=== PATIENT | female | born 1950 | race Caucasian/White ===

== ENCOUNTER → 2024-06-14 15:31 | Outpatient (REF) | payer BC, SELFPAY | LOC: RAD 15:31 | PROVIDERS: ATTENDING PHYSICIAN Student in an Organized Health Care Education/Training Program; FAMILY PHYSICIAN Internal Medicine | DX: I73.9 Peripheral vascular disease, unspecified (principal) | CPT/HCPCS: 93922; 93925 ==

== ENCOUNTER → 2024-08-21 16:08 | Outpatient (REF) | payer BC, SELFPAY ==
[2024-08-21 16:47] LABS: % Basophils 0.7 % (0-2); % Eosinophils 7.5 % (0-6); % Immature Granulocytes 0.4 % (0-0.5); % Lymphocytes 9.5 % (20.5-51.1); % Neutrophils 68.9 % (42.2-75.2); Absolute Basophils 0.1 10^3/uL (0-0.2); Absolute Eosinophils 0.6 10^3/uL (0-0.7); Absolute Lymphocytes 0.8 10^3/uL (1.2-3.4); Absolute Monocytes 1.1 10^3/uL (0.1-0.6); Absolute Neutrophils 5.8 10^3/uL (1.4-6.5); Hematocrit 35.9 % (37.0-47.0); Hemoglobin 11.2 g/dL (12.0-16.0); Mean Corp Hgb Conc. 31.2 g/dL (33.0-37.0); Mean Corpuscular Hgb 31.3 pg (27.0-31.0); Mean Corpuscular Volume 100.3 fL (81.0-99.0); Mean Platelet Volume 10.4 fL (7.4-10.4); Nucleated Red Blood Cells % 0 %; Platelet Count 288 10^3/uL (130-400); Red Blood Cell Count 3.58 10^6/uL (4.20-5.40); Red Cell Dist. Width 14.1 % (11.5-14.5); White Blood Cell Count 8.5 10^3/uL (4.8-10.8)
[2024-08-21 17:00] LABS: Blood Urea Nitrogen 16 mg/dl (7-17); Calcium 8.9 mg/dl (8.4-10.2); Carbon Dioxide 24 mmol/L (22-30); Chloride 97 mmol/L (98-107); Glucose 96 mg/dl (70-99); Potassium 4.3 mmol/L (3.5-5.1); Sodium 135 mmol/L (135-145); eGFR 48.39
== END ==
LOC: REG 16:08
PROVIDERS: ATTENDING PHYSICIAN Internal Medicine
DX: R00.2 Palpitations (principal); R06.02 Shortness of breath; R35.0 Frequency of micturition
CPT/HCPCS: 36415; 71046; 80048; 85025

== ENCOUNTER → 2024-09-27 14:16 | Outpatient (REF) | payer BC, SELFPAY | LOC: HWRAD 14:16 | PROVIDERS: ATTENDING PHYSICIAN Internal Medicine | DX: R91.1 Solitary pulmonary nodule (principal) | CPT/HCPCS: 71250 ==

== ENCOUNTER 2024-09-29 10:41 | Inpatient (IN) | payer BC, MEDICARE, SELFPAY ==
[2024-09-29] VITALS (82 sets, daily range): BP systolic 56–166; BP diastolic 37–125; BMI 23.6; BMI 23.4
[2024-09-29] MEDS: NSS 500 IV (02:36)
[2024-09-29 02:41] LABS: Hematocrit 35.6 % (37.0-47.0); Hemoglobin 11.2 g/dL (12.0-16.0); Mean Corp Hgb Conc. 31.5 g/dL (33.0-37.0); Mean Corpuscular Hgb 31.5 pg (27.0-31.0); Mean Corpuscular Volume 100.3 fL (81.0-99.0); Mean Platelet Volume 10.5 fL (7.4-10.4); Platelet Count 307 10^3/uL (130-400); Red Blood Cell Count 3.55 10^6/uL (4.20-5.40); Red Cell Dist. Width 15.9 % (11.5-14.5); White Blood Cell Count 12.2 10^3/uL (4.8-10.8)
[2024-09-29 02:56] LABS: ALT (SGPT) 18 U/L (0-35); AST (SGOT) 46 U/L (14-36); Albumin 3.4 g/dl (3.5-5.0); Alkaline Phosphatase 305 U/L (38-126); Blood Urea Nitrogen 30 mg/dl (7-17); Calcium 9.3 mg/dl (8.4-10.2); Carbon Dioxide 17 mmol/L (22-30); Chloride 102 mmol/L (98-107); Estimated Creatinine Clearance 20 ml/min; Glucose 89 mg/dl (70-99); Magnesium 1.5 mg/dl (1.6-2.3); Potassium 4.3 mmol/L (3.5-5.1); Sodium 141 mmol/L (135-145); Total Bilirubin 0.8 mg/dl (0.2-1.3); Total Protein 6.5 g/dl (6.3-8.2); eGFR 22.03
[2024-09-29 03:09] LABS: Venous Blood Gas B.E. -10.9 mmol/L (-4 to +4); Venous Blood Gas HCO3 17.2 mmol/L (22-27); Venous Blood Gas O2 Sat % 99.6 %; Venous Blood Gas pCO2 46 mmHg (35-48); Venous Blood Gas pO2 166 mmHg (30-50)
[2024-09-29 03:12] LABS: Venous Blood Gas O2 Therapy 90%
[2024-09-29 03:13] LABS: Venous Blood Gas pH 7.18 (7.32-7.43)
[2024-09-29 03:13] LABS: NT-proBNP > 27000 pg/ml; Troponin I 0.146 ng/ml
--- NOTE | 2024-09-29 04:14 | ED.GENMED ---
History of Present Illness
<Arnoldo Mcgee MD - Last Filed: 09/29/24 15:27>
General
Chief Complaint: Fall
Source: patient
Exam Limitations: none
Time Seen by Provider: 09/29/24 01:55
Nursing documentation reviewed up to this point in time: agreed with
History of Present Illness
History of Present Illness:
Patient with history of lung cancer and COPD, presents to ED after unwitnessed fall in the kitchen, prior to arrival. Patient denies loss of consciousness. Patient states that she felt weak and fell backwards hitting the back of her head against
the floor. Patient has had decreased appetite recently. Per paramedics, patient also was found to be hypoxic at home and placed on nonrebreather, prior to transfer. Upon arrival, patient is complaining of posterior headache and neck pain from the
fall. Denies chest pain. Denies shortness of breath. Denies dizziness. Denies blurred vision. Denies loss of sensation or weakness. Denies recent change in medications or diet. Denies nausea or vomiting. Patient states that due to weakness,
she has been encouraged to use walker at home.
Past History
<Arnoldo Mcgee MD - Last Filed: 09/29/24 15:27>
Past History
ED Past Medical History: Cancer (Non-small cell lung cancer), HTN, Hypercholesterolemia and Psychiatric (Anxiety)
ED Past Surgical History: , Orthopedic and Other
Social History
Tobacco: Former smoker
Alcohol: Occasional
Personal:
Living: with family
Employment: Retired
Family History
Family History: Other (Noncontributory)
Review of Systems
<Arnoldo Mcgee MD - Last Filed: 09/29/24 15:27>
Review of Systems
Allergies reviewed?: Yes
All Other Systems: ROS reviewed and negative except as documented in HPI and ROS
Constitutional: Reports no symptoms; Denies fever
EENT: Reports no symptoms
Respiratory: Reports cough
Cardiac: Reports no symptoms
ABD/GI: Reports no symptoms
: Reports no symptoms
Musculoskeletal: Reports neck pain
Skin: Reports no symptoms
Neurological: Reports headache and weakness; Denies dizzy or numbness
Phy Exam
<Arnoldo Mcgee MD - Last Filed: 09/29/24 15:27>
Physical Exam
Physical Exam:
Physical Exam
General: mild distress, not acutely ill. afebrile. weak appearing
Head: nc/at. eomi
Neck: supple. normal range of motion. no midline tenderness to palpation.
Heart: s1/s2 regular rate and rhythm, no murmur. equal radial pulses.
Lungs: no acute respiratory distress. diminished breath sounds bilaterally
Abdomen: normal bowel sounds. not tender.
Neuro: alert and oriented x 3. no focal neurological deficits
Skin: no rash
Psychiatric: well kept. interactive and cooperative
Extremities: no edema. no calf tenderness.
Course
<Arnoldo Mcgee MD - Last Filed: 09/29/24 15:27>
Orders/Labs/Results
Orders:
Orders
09/29/24 02:20
[address] Cervical Spine W/o Iv Contr Urgent
Comment:
Reason For Exam: trauma
CT Head W/o Iv Contrast Urgent
Comment:
Reason For Exam: trauma to posterior head
09/29/24 02:21
0.9% Sodium Chloride 500 ml [Nss] 500 ml IV BOLUS
CR Chest - 2 Views Urgent
Comment:
Reason For Exam: cough/sob
09/29/24 02:23
COVID-19 Antigen Urgent
Source: Nasal Swab
09/29/24 02:35
Complete Blood Count/No Diff Urgent
Comprehensive Metabolic Panel Urgent
Magnesium Urgent
NT-proBNP Urgent
PT/INR [Prothrombin Time] Urgent
TSH Urgent
Comment: ADD ON
Troponin I Urgent
09/29/24 03:03
Venous Blood Gas Urgent
%Oxygen/Room Air: 90
09/29/24 03:44
US Legs, Bilateral [US Periph Venous LOWER Ext Josue] Urgent
Comment:
Reason For Exam: leg swelling/hypoxia
09/29/24 05:11
Lorazepam [Ativan] 0.5 mg IV NOW STA
09/29/24 07:26
Piperacillin/Tazo 3.375 Gram [Zosyn] 3.375 gram in 50 ml IV NOW
09/29/24 08:56
NORepinephrine 4 MG/250 ML [Levophed] 4 mg in 250 ml .ROUTE .STK-MED
NORepinephrine 4 MG/250 ML [Levophed] 4 mg in 250 ml IV NOW
Initial dose in mcg/min, then titrate:: 4
Titrate to keep:: MAP > 65 mmHg
Titrate by mcg/min:: 1-2 mcg/min
Frequency of titrations (minutes):: 5
Maximum dose in ICU in mcg/min:: 30
Maximum dose in IMU in mcg/min:: 8
Maximum dose in IVU in mcg/min:: 4
Begin to taper infusion when:: Remained at goal for 4hrs
Taper by mcg/min:: 1-2 mcg/min
Frequency of taper (minutes) if patient maintains goal:: 30
Taper to off?: Yes
If infusion off & no longer maintaining goal:: Contact Provider
09/29/24 09:02
PICC Line As Directed
09/29/24 09:13
Electrocardiogram (*1) Urgent
Reason for Study: Vertigo / Dizzy
EKG- Treatment ONCE
09/29/24 09:32
Magnesium Sulfate 2 Gram/50 ml [Magnesium Sulfate] 2 gram in 50 ml IV NOW
09/29/24 09:33
Add On- LAB Urgent
Tests Added?: TSH
09/29/24 09:35
VANCOMYCIN Pharmacy to Dose [VANCOCIN Pharmacy to Dose] 1 each Pharmacy To Prepare [Call Pharmacy To Prepare] 0 ml IV PER PROTOCOL
09/29/24 09:38
Vancomycin [Vancocin] 1,500 mg 0.9% Sodium Chloride 500 ml [Nss] 500 ml IV NOW
09/29/24 09:41
Basic Metabolic Panel Urgent
Folate Urgent
Comment: ADD ON
Free T3 Urgent
Comment: ADD ON
Free T4 Urgent
Comment: ADD ON
Troponin I Urgent
Venous Blood Gas Stat
%Oxygen/Room Air: 28
Vitamin B12 Urgent
Comment: ADD ON
09/29/24 09:45
Influenza A+B Rapid Molecular Urgent
YEVGENIY Source: Nasal Swab
Specimen Description:
09/29/24 09:46
CT Chest/abd/pel Wo Iv Cont Urgent
Comment:
Reason For Exam: septic shock, lft, back pain
09/29/24 10:00
Cefepime HCl [Maxipime] 1,000 mg IV Q12H
Flush (0.9% Sodium Chloride) [Flush (Nss)] See Dose Instructions IV PER PROTOCOL
Sterile Water [Sterile Water For Injection] 10 ml IV Q12H
09/29/24 10:04
Insurance Administrative Assistant Consult Urgent
Consulting Provider: Zachary Ha
Was physician already notified: Yes
Reason for consult: septic shock
09/29/24 10:05
Admit/Transfer Patient As Directed
Co-Sign Provider:
Level of Care: Inpatient admission
Assign to:: ICU
Physician / Group: hospitalist
Diagnosis: septic shock
Reason for Hospitalization: skeptic shock
Expected length of stay greater than two midnights?: Yes
ELOS- Estimated Length of Stay in days: 5
I certify the patient meets the requirements for IP care: Yes
PRN Pain Medication Management As Directed
May give lesser potent ordered pain med per pt: Yes
preference::
Protocol:: Medication orders for pain may be administered in a
manner that supports deferring to patient preference
when the pt is:
- Requesting an ordered lesser potent pain medication.
Least to most potent pain medications are defined
as: acetaminophen < NSAID < tramadol < opioids
(morphine, oxycodone, hydromorphone).
- Requesting a lesser dose of the same medication IF
ORDERED.
- Requesting a less intrusive route of administration
if both routes are prescribed by the provider (PO <
IV).
09/29/24 10:06
Code Status As Directed
Resuscitation Status: Do not resuscitate
Reached after discussion with pt or family/Healthcare POA: Yes
Blood Culture Q30M
YEVGENIY Source: Blood/Venous
Specimen Description:
09/29/24 10:07
Blood Culture Q30M
YEVGENIY Source: Blood/Venous
Specimen Description:
DNR Bracelet Application ONCE
09/29/24 10:11
Add On- LAB Routine
Tests Added?: b12, folate
09/29/24 10:15
Dextrose 5%/Water 1000 ml [D5w] 1,000 ml Sodium Bicarbonate 150 meq IV 100 mls/hr
09/29/24 11:29
Acetaminophen [Tylenol] 650 mg PO Q4HPRN PRN
Bisacodyl [Dulcolax] 10 mg RECTAL [id number] PRN
Dextrose 5%/Lactringers 1000ML [D5lr] 1,000 ml IV 100 mls/hr
Docusate W/Senna [Senokot-S] 1 tablet PO BIDPRN PRN
Ipratropium/Albuterol Sulfate [Duoneb] 3 ml INH R Q4HPRN PRN
Ondansetron Injectable [Zofran] 4 mg IV Q8HPRN PRN
09/29/24 11:29
Echo 2D MMode Color/Doppler Routine
Reason for Study: elevated trop
Activity As Directed
Activity Level: Out of Bed-Early Mobility
Everett Catheter [Catheter- Indwelling] As Directed
Reason for insertion: I&O's Critical Care
Assess insertion reason daily.Remove if no longer applicable: Yes
Vital Signs As Directed
Frequency: Per unit guidelines
O2 Therapy [RESP] Routine
Titrate/Wean O2 to maintain O2 sat greater than (%): 90
DX Deep Vein Thrombosis Video Routine
09/29/24 11:59
Urinalysis Reflex To Culture Urgent
Date Specimen was Collected: 09/29/24
Time Specimen was Collected: 11:44
09/29/24 12:47
Polyethylene Glycol Powder [Miralax] 17 grams PO DAILYPRN PRN
09/30/24 03:49
Complete Blood Count/With Diff IN AM
Comprehensive Metabolic Panel IN AM
Magnesium IN AM
09/30/24 08:00
Levothyroxine [Synthroid] 88 mcg PO DAILY
Tiotropium [place] 2.5 Mcg [Spiriva Respimat 2.5 Mcg] 2 puff INH R DAILY
Abnormal Lab Results
09/29/24 09/29/24 09/29/24
02:35 03:03 09:41
WBC 12.2 H 10^3/uL
(4.8-10.8)
RBC 3.55 L 10^6/uL
(4.20-5.40)
Hgb 11.2 L g/dL
(12.0-16.0)
Hct 35.6 L %
(37.0-47.0)
MCV 100.3 H fL
(81.0-99.0)
MCH 31.5 H pg
(27.0-31.0)
MCHC 31.5 L g/dL
(33.0-37.0)
RDW 15.9 H %
(11.5-14.5)
MPV 10.5 H fL
(7.4-10.4)
PT 17.2 H Sec
(11.4-14.6)
VBG pH 7.18 L* 7.17 L*
(7.32-7.43) (7.32-7.43)
VBG pO2 166 H mmHg 183 H mmHg
(30-50) (30-50)
VBG HCO3 17.2 L mmol/L 16.8 L mmol/L
(22-27) (22-27)
Carbon Dioxide 17 L mmol/L 14 L* mmol/L
(22-30) (22-30)
BUN 30 H mg/dl 31 H mg/dl
(7-17) (7-17)
Creatinine 2.3 H mg/dL 2.5 H mg/dL
(0.6-1.0) (0.6-1.0)
Magnesium 1.5 L mg/dl
(1.6-2.3)
AST 46 H U/L
(14-36)
Alkaline Phosphatase 305 H U/L
(38-126)
Troponin I 0.146 H* ng/ml 0.250 H* D ng/ml
Albumin 3.4 L g/dl
(3.5-5.0)
Vitamin B12 > 1000 H pg/ml
(239-931)
TSH 32.20 H uIU/ml
(0.47-4.68)
Free T3 1.48 L pg/ml
(2.77-5.27)
09/29/24 02:35
09/29/24 09:41
Vital Signs
Initial and Last Documented VS:
Initial Vital Signs
Pulse Resp BP
121 23 119/71
09/29/24 01:53 09/29/24 01:53 09/29/24 01:53
Last Documented Vital Signs
Temp Pulse Resp BP Pulse Ox
100.4 F H 99 17 115/78 93
10/01/24 12:52 10/01/24 12:50 10/01/24 12:50 10/01/24 12:50 09/30/24 19:30
Bevlt;Mark Palacios, DO - Last Filed: 10/01/24 17:27>
Orders/Labs/Results
Orders:
Orders
09/29/24 02:20
CT Cervical Spine W/o Iv Contr Urgent
Comment:
Reason For Exam: trauma
CT Head W/o Iv Contrast Urgent
Comment:
Reason For Exam: trauma to posterior head
09/29/24 02:21
0.9% Sodium Chloride 500 ml [Nss] 500 ml IV BOLUS
CR Chest - 2 Views Urgent
Comment:
Reason For Exam: cough/sob
09/29/24 02:23
COVID-19 Antigen Urgent
Source: Nasal Swab
09/29/24 02:35
Complete Blood Count/No Diff Urgent
Comprehensive Metabolic Panel Urgent
Magnesium Urgent
NT-proBNP Urgent
PT/INR [Prothrombin Time] Urgent
TSH Urgent
Comment: ADD ON
Troponin I Urgent
09/29/24 03:03
Venous Blood Gas Urgent
%Oxygen/Room Air: 90
09/29/24 03:44
US Legs, Bilateral [US Periph Venous LOWER Ext Josue] Urgent
Comment:
Reason For Exam: leg swelling/hypoxia
09/29/24 05:11
Lorazepam [Ativan] 0.5 mg IV NOW STA
09/29/24 07:26
Piperacillin/Tazo 3.375 Gram [Zosyn] 3.375 gram in 50 ml IV NOW
09/29/24 08:56
NORepinephrine 4 MG/250 ML [Levophed] 4 mg in 250 ml .ROUTE .STK-MED
NORepinephrine 4 MG/250 ML [Levophed] 4 mg in 250 ml IV NOW
Initial dose in mcg/min, then titrate:: 4
Titrate to keep:: MAP > 65 mmHg
Titrate by mcg/min:: 1-2 mcg/min
Frequency of titrations (minutes):: 5
Maximum dose in ICU in mcg/min:: 30
Maximum dose in IMU in mcg/min:: 8
Maximum dose in IVU in mcg/min:: 4
Begin to taper infusion when:: Remained at goal for 4hrs
Taper by mcg/min:: 1-2 mcg/min
Frequency of taper (minutes) if patient maintains goal:: 30
Taper to off?: Yes
If infusion off & no longer maintaining goal:: Contact Provider
09/29/24 09:02
PICC Line As Directed
09/29/24 09:13
Electrocardiogram (*1) Urgent
Reason for Study: Vertigo / Dizzy
EKG- Treatment ONCE
09/29/24 09:32
Magnesium Sulfate 2 Gram/50 ml [Magnesium Sulfate] 2 gram in 50 ml IV NOW
09/29/24 09:33
Add On- LAB Urgent
Tests Added?: TSH
09/29/24 09:35
VANCOMYCIN Pharmacy to Dose [VANCOCIN Pharmacy to Dose] 1 each Pharmacy To Prepare [Call Pharmacy To Prepare] 0 ml IV PER PROTOCOL
09/29/24 09:38
Vancomycin [Vancocin] 1,500 mg 0.9% Sodium Chloride 500 ml [Nss] 500 ml IV NOW
09/29/24 09:41
Basic Metabolic Panel Urgent
Folate Urgent
Comment: ADD ON
Free T3 Urgent
Comment: ADD ON
Free T4 Urgent
Comment: ADD ON
Troponin I Urgent
Venous Blood Gas Stat
%Oxygen/Room Air: 28
Vitamin B12 Urgent
Comment: ADD ON
09/29/24 09:45
Influenza A+B Rapid Molecular Urgent
YEVGENIY Source: Nasal Swab
Specimen Description:
09/29/24 09:46
CT Chest/abd/pel Wo Iv Cont Urgent
Comment:
Reason For Exam: septic shock, lft, back pain
09/29/24 10:00
Cefepime HCl [Maxipime] 1,000 mg IV Q12H
Flush (0.9% Sodium Chloride) [Flush (Nss)] See Dose Instructions IV PER PROTOCOL
Sterile Water [Sterile Water For Injection] 10 ml IV Q12H
09/29/24 10:04
Insurance Administrative Assistant Consult Urgent
Consulting Provider: Zachary Ha
Was physician already notified: Yes
Reason for consult: septic shock
09/29/24 10:05
Admit/Transfer Patient As Directed
Co-Sign Provider:
Level of Care: Inpatient admission
Assign to:: ICU
Physician / Group: hospitalist
Diagnosis: septic shock
Reason for Hospitalization: skeptic shock
Expected length of stay greater than two midnights?: Yes
ELOS- Estimated Length of Stay in days: 5
I certify the patient meets the requirements for IP care: Yes
PRN Pain Medication Management As Directed
May give lesser potent ordered pain med per pt: Yes
preference::
Protocol:: Medication orders for pain may be administered in a
manner that supports deferring to patient preference
when the pt is:
- Requesting an ordered lesser potent pain medication.
Least to most potent pain medications are defined
as: acetaminophen < NSAID < tramadol < opioids
(morphine, oxycodone, hydromorphone).
- Requesting a lesser dose of the same medication IF
ORDERED.
- Requesting a less intrusive route of administration
if both routes are prescribed by the provider (PO <
IV).
09/29/24 10:06
Code Status As Directed
Resuscitation Status: Do not resuscitate
Reached after discussion with pt or family/Healthcare POA: Yes
Blood Culture Q30M
YEVGENIY Source: Blood/Venous
Specimen Description:
09/29/24 10:07
Blood Culture Q30M
YEVGENIY Source: Blood/Venous
Specimen Description:
DNR Bracelet Application ONCE
09/29/24 10:11
Add On- LAB Routine
Tests Added?: b12, folate
09/29/24 10:15
Dextrose 5%/Water 1000 ml [D5w] 1,000 ml Sodium Bicarbonate 150 meq IV 100 mls/hr
09/29/24 11:29
Acetaminophen [Tylenol] 650 mg PO Q4HPRN PRN
Bisacodyl [Dulcolax] 10 mg RECTAL [id number] PRN
Dextrose 5%/Lactringers 1000ML [D5lr] 1,000 ml IV 100 mls/hr
Docusate W/Senna [Senokot-S] 1 tablet PO BIDPRN PRN
Ipratropium/Albuterol Sulfate [Duoneb] 3 ml INH R Q4HPRN PRN
Ondansetron Injectable [Zofran] 4 mg IV Q8HPRN PRN
09/29/24 11:29
Echo 2D MMode Color/Doppler Routine
Reason for Study: elevated trop
Activity As Directed
Activity Level: Out of Bed-Early Mobility
Everett Catheter [Catheter- Indwelling] As Directed
Reason for insertion: I&O's Critical Care
Assess insertion reason daily.Remove if no longer applicable: Yes
Vital Signs As Directed
Frequency: Per unit guidelines
O2 Therapy [RESP] Routine
Titrate/Wean O2 to maintain O2 sat greater than (%): 90
DX Deep Vein Thrombosis Video Routine
09/29/24 11:59
Urinalysis Reflex To Culture Urgent
Date Specimen was Collected: 09/29/24
Time Specimen was Collected: 11:44
09/29/24 12:47
Polyethylene Glycol Powder [Miralax] 17 grams PO DAILYPRN PRN
09/30/24 03:49
Complete Blood Count/With Diff IN AM
Comprehensive Metabolic Panel IN AM
Magnesium IN AM
09/30/24 08:00
Levothyroxine [Synthroid] 88 mcg PO DAILY
Tiotropium [place] 2.5 Mcg [Spiriva Respimat 2.5 Mcg] 2 puff INH R DAILY
Abnormal Lab Results
09/29/24 09/29/24 09/29/24
02:35 03:03 09:41
WBC 12.2 H 10^3/uL
(4.8-10.8)
RBC 3.55 L 10^6/uL
(4.20-5.40)
Hgb 11.2 L g/dL
(12.0-16.0)
Hct 35.6 L %
(37.0-47.0)
MCV 100.3 H fL
(81.0-99.0)
MCH 31.5 H pg
(27.0-31.0)
MCHC 31.5 L g/dL
(33.0-37.0)
RDW 15.9 H %
(11.5-14.5)
MPV 10.5 H fL
(7.4-10.4)
PT 17.2 H Sec
(11.4-14.6)
VBG pH 7.18 L* 7.17 L*
(7.32-7.43) (7.32-7.43)
VBG pO2 166 H mmHg 183 H mmHg
(30-50) (30-50)
VBG HCO3 17.2 L mmol/L 16.8 L mmol/L
(22-27) (22-27)
Carbon Dioxide 17 L mmol/L 14 L* mmol/L
(22-30) (22-30)
BUN 30 H mg/dl 31 H mg/dl
(7-17) (7-17)
Creatinine 2.3 H mg/dL 2.5 H mg/dL
(0.6-1.0) (0.6-1.0)
Magnesium 1.5 L mg/dl
(1.6-2.3)
AST 46 H U/L
(14-36)
Alkaline Phosphatase 305 H U/L
(38-126)
Troponin I 0.146 H* ng/ml 0.250 H* D ng/ml
Albumin 3.4 L g/dl
(3.5-5.0)
Vitamin B12 > 1000 H pg/ml
(239-931)
TSH 32.20 H uIU/ml
(0.47-4.68)
Free T3 1.48 L pg/ml
(2.77-5.27)
09/29/24 02:35
09/29/24 09:41
Vital Signs
Initial and Last Documented VS:
Initial Vital Signs
Pulse Resp BP
121 23 119/71
09/29/24 01:53 09/29/24 01:53 09/29/24 01:53
Last Documented Vital Signs
Temp Pulse Resp BP Pulse Ox
100.4 F H 99 17 115/78 93
10/01/24 12:52 10/01/24 12:50 10/01/24 12:50 10/01/24 12:50 09/30/24 19:30
<Arnoldo Mcgee MD - Last Filed: 09/29/24 15:27>
MDM/Problems Addressed
MDM/Problems Addressed:
Discussed with patient's spouse, who informs me that patient who has history of lung cancer, had ill effect from radiation chemotherapy 2 years ago, and since then has not received any treatment. Because her symptoms, i.e. shortness of breath has
been getting worse, outpatient CT chest was ordered by her primary care physician [address] chest report from September 27, 2024 reviewed, concerning for soft tissue mass causing obstructive process, along with right pleural effusion. Patient will be admitted for further evaluation and treatment.
Prior to evaluation by admitting team, patient noted to become hypotensive. As such, additional IVF ordered along with iv abx, with concern for post obstructive pneumonia
<Arnoldo Mcgee MD - Last Filed: 09/29/24 15:27>
*Critical Care Note
Total Time (30-74mins, 75-104mins- exclusive of procedures): 40 min
<Mark Palacios DO - Last Filed: 10/01/24 17:27>
Update Note
Update Note:
Assumed patient care at 7:45 AM.
Patient admitted last night by Dr. Jenkins but orders have not been written yet. Patient presented with malaise and a fall. Had recent CT which showed progression of lung cancer and obstruction of right lower lobe bronchus. Patient was hypotensive on
arrival but evidently responded to IV fluids. She has again become hypotensive. Dr. Mcgee had ordered broad-spectrum antibiotics and another IV fluid bolus prior to his leaving.
On exam the patient is restless and confused
She has peripheral cyanosis presumably from vasoconstriction.
Lung exam is clear bilaterally
The patient may have hypotension from sepsis versus metabolic derangements from progression of cancer versus volume contraction from poor oral intake
We will continue aggressive IV fluid resuscitation. Levophed ordered to augment blood pressure. I communicate with the patient's , Wilfrido Jones, and discussed goals of care. He states that his and he had discussed whether or not she
would want to be resuscitated and he knows for sure she would not want that. Patient is a DO NOT RESUSCITATE DO NOT INTUBATE.
I have texted the hospitalist, Dr. Paiz, to update them on the patient's status
Critical care time: 32 minutes.
ED Attending Note
<Arnoldo Mcgee MD - Last Filed: 09/29/24 15:27>
-
Portions of this chart may have been created with voice recognition software.� Occasional wrong word or��sound alike� substitutions may have occurred due to the inherent limitations of voice recognition software.
Discharge Plan
Departure
Patient Disposition: Admit
Date of Disposition: 09/29/24
Time of Disposition: 05:48
Admit to: Telemetry
Presentation/result/management discussed w/ accepting MD/DO: Hospitalist
Discharge Problem:
Hypoxia, Abnormal chest CT, Acute renal failure
Interventions
Interventions:
*General Assessment Last Done: 09/29/24 01:57
*Neglect/Abuse Screening Last Done: 09/29/24 01:45
*Nursing Disposition Last Done: 09/29/24 10:50
ED-Musculoskeletal Assessment Last Done: 09/29/24 01:57
ED- Neurological Assessment Last Done: 09/29/24 01:56
ED-Skin Assessment Last Done: 09/29/24 07:32
Discharge Date and Time
Discharge Date/Time: 09/29/24 11:28
[2024-09-29] MEDS: ATIVAN 0.5 MG IV (05:36)
[2024-09-29 07:10] LABS: COVID-19 Antigen Negative (Negative)
[2024-09-29] MEDS: ZOSYN 50 IV (07:41)
--- NOTE | 2024-09-29 07:42 | EDRN ---
No UA was collected- I asked Dr SENIOR if he wanted a sttraight cath prior to IV ABX and he said no, just give the ABX
[2024-09-29] MEDS: LEVOPHED 250 IV ×2 (09:04→18:03)
[2024-09-29 10:03] LABS: Venous Blood Gas B.E. -11.3 mmol/L (-4 to +4); Venous Blood Gas HCO3 16.8 mmol/L (22-27); Venous Blood Gas O2 Sat % 99.3 %; Venous Blood Gas pCO2 46 mmHg (35-48); Venous Blood Gas pO2 183 mmHg (30-50)
[2024-09-29] MEDS: VANCOCIN 530 MG IV (10:05)
[2024-09-29 10:06] LABS: Venous Blood Gas pH 7.17 (7.32-7.43)
--- NOTE | 2024-09-29 10:09 | HPS.HSE ---
Addendum entered and electronically signed by Arturo Hunter MD 09/29/24 14:37:
#Elevated TSH
normal FT4 and low FT3
discuss with endo.
Temporary on Synthroid 100mcg IV and Hydrocortisone
#UTI
follow Ucx
No hydronephrosis or nephrolithiasis
Original Note:
Family Physician
-
Family Physician: Brodie Dutton MD
Chief Complaint
-
weakness, fall, AMS
History of Present Illness
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 PAtient was
declining to go to the hospital, as per . In ED found hypotensive, with septic shock without clear source. Head CT with new lythic lesion. As per conversation with - patient is DNR/DNI however he would like to continue all other
possible medical intervention.
Medical History
Past Medical History
Past Medical History: Reports Other
Additional Past Medical History:
See HPI
Past Surgical History: Reports None
Social History
Unable to obtain full social history at this time due to: Acuity
Family History
Family History: Not pertinent
Allergies / Home Medications
Allergies reflects when Allergies were last updated in [facility].
Home Medications with original date entered in [facility]
Allergy/Medication List:
Allergies
Allergy/AdvReac Type Severity Reaction Status Date / Time
paclitaxel [From Taxol] Allergy Henriquez Verified 09/29/24 01:45
[place]
Home Medications
umeclidinium 62.5 mcg-vilanterol 25 mcg/actuation powdr for inhalation (Anoro Ellipta) 1 puff inhalation R BID 02/25/21
alprazolam 0.5 mg tablet 0.5 mg PO BID Sleep 09/03/21
calcium 600 mg (as carbonate)-vitamin D3 10 mcg (400 unit) tablet (Calcium 600 + D(3)) 1 tab PO DAILY 01/01/23
docusate sodium 100 mg capsule (Colace) 100 mg PO BIDPRN PRN constipation 09/29/24
levothyroxine 88 mcg tablet (Synthroid) 88 mcg PO DAILY 09/29/24
olmesartan 40 mg tablet (Benicar) 40 mg PO DAILY 09/29/24
oxycodone-acetaminophen 7.5 mg-325 mg tablet 1 tab PO QID 09/29/24
Review of Systems
-
Unable to obtain full review of systems at this time due to: Acuity
Physical Exam
Vital Signs
Vital Signs
Pulse Resp BP Pulse Ox
109 16 86/69 86
09/29/24 09:50 09/29/24 09:50 09/29/24 09:50 09/29/24 09:45
Physical Exam
General: Conversant and Respiratory Distress
HEENT: No Moist mucous membranes
Respiratory: Rhonchi and Decreased Breath Sounds
Cardiac: S1/S2, Regular Rhythm and Tachycardia
GI: Soft, Non Tender and Distended
Genito-urinary: No costovertebral tender
Musculoskeletal: No Clubbing, No Cyanosis and No Edema
Skin: Warm; No Rash or Jaundice
Neuro: Awake and Alert
Psych: Confused
Laboratory Results
-
09/29/24 02:35
Laboratory Results
pH Cancelled 09/29/24 02:03
pCO2 Cancelled 09/29/24 02:03
pO2 Cancelled 09/29/24 02:03
HCO3 Cancelled 09/29/24 02:03
Total Bilirubin 0.8 mg/dl (0.2-1.3) 09/29/24 02:35
AST 46 U/L (14-36) H 09/29/24 02:35
ALT 18 U/L (0-35) 09/29/24 02:35
Alkaline Phosphatase 305 U/L (38-126) H 09/29/24 02:35
Troponin I 0.146 ng/ml H* 09/29/24 02:35
Impression/Plan
-
A/P:
#Septic shock 2/2 postobstuctive pneumonia
#Right-sided volume loss with mediastinal shift secondary to occlusion of the right lower lobe bronchus
#Septic encephalopathy
IVF
Pressors and wean as tollerated
UA/Bcx
[employer]/Pulm consult
COVID-19 neg, check Influenza
Sputum Cx
#CHARAN with metabolic acidosis
baseline CR 0.8-1.2
IVF bicarb
follow Cr
CT abd/pelvis
Everett
Urine studies
#Hypomagnesemia
replete and follow
#Alk.phos elevation
possibly 2/[address] abd, if neg for biliary pathology -will order US RUQ
#Fall
#Back pain
CT head/neck without trauma
eval CT spine on CT C/A/P
#Hypothyroidism
check TSH
cont synthroid
#COPD
cont bronchodilators
#Troponin elevation 2/2 septic shock
EKG without ST elevation
follow trops
Echo
#macrocytic anemia
check folate, B12, follow CBC
#essential HTN
hold BP until shock resolves
DVT ppx on SCDs until additional results of the studies
DNR/DNI as per detailed conversation with
I have spent at least 79min reviewing chart, test results, communication with consultants and direct patient care
[2024-09-29 10:11] LABS: Blood Urea Nitrogen 31 mg/dl (7-17); Calcium 8.8 mg/dl (8.4-10.2); Carbon Dioxide 14 mmol/L (22-30); Chloride 104 mmol/L (98-107); Estimated Creatinine Clearance 18 ml/min; Glucose 80 mg/dl (70-99); Potassium 4.7 mmol/L (3.5-5.1); Sodium 140 mmol/L (135-145); eGFR 19.93
--- NOTE | 2024-09-29 10:50 | CON.INTV ---
Consultation
Consultation Request
Date/Time Consultation Requested: 09/29/2024 - 100
Date/Time Consultation Performed: 09/29/2024 - 1031
Requesting Provider: Dr. Hunter
Performing Provider: Dr. Ha
Reason for Consultation: Sepsis/Hypoxia
Medical History
-
Chief Complaint: Unwitnessed fall
History of Present Illness:
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
excision, anxiety/depression, invasive lobular carcinoma (diagnosed in August 2022), hypothyroidism, insomnia, chronic middle back pain, constipation, cataracts s/p surgery with lens implant and history of diverticulitis who presents with an
unwitnessed fall. Patient was found in the kitchen by her . She reportedly hit her head and had neck discomfort. She was found to be mildly hypoxic via EMS. She initially declined to go to the hospital. Her , Wilfrido, said that she
has been declining for few months but has been refusing to go see a doctor. Patient is DNR/DNI as per the . Initially in the ER she was tachycardic to 121, breathing at 23 breaths/min, BP 119/71 and was saturating 99% on 4 L/min. Initial
labs showed WBC 12.2, Hb 11.2, pH 7.18, serum bicarbonate level 17, creatinine 2.3, magnesium 1.5, troponin 0.146, proBNP >27,000, TSH 32.2, free T4 was 0.98, urinalysis with positive nitrites and 2+ leukocyte esterase, and COVID-19 antigen
negative. Flu A/B swab was negative, and blood and urine cultures were collected. CT cervical spine showed no acute findings, and CT head showed no acute intracranial abnormality although it did show an aggressive new lytic lesion in the left
frontal calvarium measuring 3.1 cm suspicious for lytic metastasis versus multiple myeloma. CXR showed right sided volume loss which was seen on prior CT chest on 09/27/2024. Subsequent CT chest/abdomen/pelvis showed no significant change within
chest, with near complete atelectasis of the right lower lobe with bronchial occlusion likely due to endobronchial malignancy, and also several nodules within the apex of the left upper lobe. She had a CT chest 2 days prior ordered by the PCP but
the family was not aware of the results.
When I saw the patient she was resting in bed, in no acute distress, currently saturating 92% on 4 L/min with heart rate 106 and BP 103/82 on Levophed at 6mcg/min. She is a poor historian and is not complaining of anything. Her , Wilfrido "Jimena"Robert, and the 's sister, Irene, were both at bedside. All questions were answered.
Of note patient follows with us in the office with last visit on 02/14/2024 with LENNIE Potter. She has a history of lung cancer s/p TTNA of a right lung nodule in March 2017 which revealed adenocarcinoma which was 20-30% PD-L1 positive. Her
last PET/CT in October 2022 showed no new focus of FDG avidity within the chest with minimal FDG avidity within the soft tissues of the left breast with a known recent biopsy-proven history of lobular carcinoma. She did have minimal FDG avidity
and a triangular-shaped opacity in the medial right lung abutting the right hilum with a max SUV of 2.2 compared to a max SUV of 2 on prior PET/CT from December 2021. She was continued on Anoro Ellipta for her history of severe COPD. Also has a
history of mild intermittent asthma. She did previously have a right-sided pleural effusion on PET/CT from December 2019 that had no PET avidity and she had a thoracentesis in December 2021 which was negative for cytology. She was told to follow-up in 6
months but this never happened. Her last PFT was in 07/16/2020 showing moderate COPD with a significant bronchodilator response, with air trapping and hyperinflation, with a moderately reduced gas exchange capacity (DLco: 51%, DLco/VA: 49%).
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
tobacco smoker, chronic middle back pain, constipation, cataracts, history of asthma, hypothyroidism, rib fractures, recurrence of right middle lobe low-grade adenocarcinoma (05/2020), breast cancer (08/2022) � invasive lobular carcinoma
PSHx: Wide excision of back due to melanoma, left breast excisional biopsy of 2 breast masses, bilateral cataracts surgery with lens implants, right knee arthroscopy, excision of left vulvar sebaceous inclusion cyst, x 1, left-sided hip
pin placement, lung drained, left sided lumpectomy with closure with oncoplastic mastoplasty
Past Medical History
Past Medical History: Other (Above as per HPI)
Past Surgical History: Other (Above as per HPI)
Social History
Tobacco: Former Smoker (51-natl-mnnl history, quit 2014)
Alcohol: Daily (Has 1-2 drinks of vodka per day)
Drug: None
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
Family History
Family History: CAD (Maternal grandfather), Cancer (Father: Throat + brain cancer; Sister: Ovarian cancer at age 24) and Other (Mother: Bipolar disorder + dementia)
Allergies / Home Medications
Allergies
Allergy/AdvReac Type Severity Reaction Status Date / Time
paclitaxel [From Taxol] Allergy Henriquez Verified 09/29/24 01:45
Keyon
S[place]rome
Home Medications
�Medication �Instructions �Recorded �Confirmed �Last Taken �Type
umeclidinium 62.5 mcg-vilanterol 1 puff inhalation R BID 02/25/21 09/29/24 01/08/23 06:00 History
25 mcg/actuation powdr for
inhalation (Anoro Ellipta)
alprazolam 0.5 mg tablet 0.5 mg PO BID Sleep 09/03/21 09/29/24 01/07/23 00:00 History
calcium 600 mg (as 1 tab PO DAILY 01/01/23 09/29/24 01/04/23 History
carbonate)-vitamin D3 10 mcg (400
unit) tablet (Calcium 600 + D(3))
docusate sodium 100 mg capsule 100 mg PO BIDPRN PRN constipation 09/29/24 09/29/24 Unknown History
(Colace)
levothyroxine 88 mcg tablet 88 mcg PO DAILY 09/29/24 09/29/24 Unknown History
(Synthroid)
olmesartan 40 mg tablet (Benicar) 40 mg PO DAILY 09/29/24 09/29/24 Unknown History
oxycodone-acetaminophen 7.5 mg-325 1 tab PO QID 09/29/24 09/29/24 Unknown History
mg tablet
Review of Systems
-
Unable to Obtain full review of systems at this time due to: Acuity
Vitals / Labs / Diagnostic Testing
Vital Signs
Temp Pulse Resp BP Pulse Ox
97.4 F 114 16 132/79 81
09/29/24 11:40 09/29/24 12:02 09/29/24 12:02 09/29/24 12:02 09/29/24 12:02
Lab Data
09/29/24 02:35
09/29/24 09:41
Laboratory Results
09/29/24 09/29/24
02:03 02:35
PT 17.2 H
INR 1.37
APTT Cancelled
pH Cancelled
pCO2 Cancelled
pO2 Cancelled
HCO3 Cancelled
O2 Delivery Level Cancelled
Microbiology
09/29/24 09:45 Nasal Swab Influenza Types A & B (ALICE) - Final
Negative for Influenza A & B, NAAT
Negative results must be combined with clinical observations
and patient history.
Nucleic Acid Amplification test (NAAT)performed on the
[employer] platform.
Diagnostic Testing:
Physical Exam
-
HEENT: Normocephalic and Anicteric
Cardiovascular: S1/S2 and Peripheral Edema (Trace lower extremity edema bilaterally)
Respiratory: Wheeze (negative), Rhonchi (negative), Non-Labored Respirations, Other (Coarse breath sounds heard bilaterally) and Other (Equal breath sounds)
GI: Soft, Non Distended, Non Tender and Normal Bowel Sounds
Neurology: Awake, Tremors (negative) and Other (Lethargic and minimally communicative)
Skin: Warm and Dry
General: Respiratory Distress (negative), Comfortable, Chills (negative) and Sweats (negative)
Assessment
-
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
back s/p wide excision, anxiety/depression, invasive lobular carcinoma (diagnosed in August 2022), hypothyroidism, insomnia, chronic middle back pain, constipation, cataracts s/p surgery with lens implant and history of diverticulitis who presents
with an unwitnessed fall. Patient was found in the kitchen by her . She reportedly hit her head and had neck discomfort. She was found to be mildly hypoxic via EMS. She initially declined to go to the hospital. Her , Wilfrido, said
that she has been declining for few months but has been refusing to go see a doctor. Patient is DNR/DNI as per the . Initially in the ER she was tachycardic to 121, breathing at 23 breaths/min, BP 119/71 and was saturating 99% on 4 L/min.
Initial labs showed WBC 12.2, Hb 11.2, pH 7.18, serum bicarbonate level 17, creatinine 2.3, magnesium 1.5, troponin 0.146, proBNP >27,000, TSH 32.2, free T4 was 0.98, urinalysis with positive nitrites and 2+ leukocyte esterase, and COVID-19 antigen
negative. Flu A/B swab was negative, and blood and urine cultures were collected. CT cervical spine showed no acute findings, and CT head showed no acute intracranial abnormality although it did show an aggressive new lytic lesion in the left
frontal calvarium measuring 3.1 cm suspicious for lytic metastasis versus multiple myeloma. CXR showed right sided volume loss which was seen on prior CT chest on 09/27/2024. Subsequent CT chest/abdomen/pelvis showed no significant change within
chest, with near complete atelectasis of the right lower lobe with bronchial occlusion likely due to endobronchial malignancy, and also several nodules within the apex of the left upper lobe. She had a CT chest 2 days prior ordered by the PCP but
the family was not aware of the results.
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
insomnia, former tobacco smoker, chronic middle back pain, constipation, cataracts, history of asthma, hypothyroidism, rib fractures, recurrence of right middle lobe low-grade adenocarcinoma (05/2020), breast cancer (08/2022) � invasive lobular
carcinoma
Impression:
#Right mainstem bronchus occlusion with near complete atelectasis of the right lower lobe with small right pleural effusion (also seen on prior CT chest from 09/27/2024)
#Acute respiratory failure with hypoxia due to above
#Shock likely due to sepsis in the setting of UTI and possible right lower lobe post-obstructive pneumonia
#Unwitnessed fall with head strike
#Leukocytosis
#Chronic anemia
#Metabolic acidosis with increased anion gap and respiratory acidosis; metabolic acidosis due to severe CHARAN
#CHARAN
#Hypomagnesemia
#Elevated ALP possibly due to lung cancer with mets
#Elevated troponin likely due to demand ischemia with type II NH
#Elevated proBNP of >27,000 (no baseline value)
#Abnormal TFTs with elevated TSH at 32.2 with normal free T4 and low free T3
#Abnormal urinalysis with positive nitrites, 2+ esterase and >100 urine WBC concerning for UTI
#Alcohol use with 1�2 drinks of vodka per day
#Former tobacco use (43-lnws-tgbg history, quit 2014)
#History of moderate COPD with significant bronchodilator response with air trapping and hyperinflation with moderate gas exchange capacity defect (via PFTs in 07/16/2020)
#History of right-sided lung adenocarcinoma (originally diagnosed via CT-guided biopsy on 03/15/2017 - of note prior nodule was in the posterior lateral right middle lobe; found to have a NSCLC recurrence via right lung CT-guided biopsy on 05/28/2020
which showed moderately differentiated adenocarcinoma
Plan:
- Ideally we would perform a bronchoscopy of her right mainstem bronchus to evaluate for malignancy versus mucoid impaction versus foreign body, with biopsy if indicated
- Patient does not want any additional chemotherapy and she has not had any recent aspiration events as per the
- Unclear what the benefit would be to perform bronchoscopy given that she is not not in respiratory distress, she has breath sounds bilaterally and is on minimal supplemental oxygen at this time
- Continue supplemental oxygen and maintain SpO2 88-95%
- Continue with Spiriva + Striverdi with prn DuoNebs (currently not bronchospastic)
- Given the suspicion for tumor in her right mainstem, no current need for hypertonic saline/Mucomyst or vest therapy
- Of note patient is DNR/DNI
- Continue with aspiration precautions
- Given her history of right-sided non-small cell lung cancer that was not fully treated with chemotherapy, consult oncology
- She has been deteriorating over this past several months and she may have metastasis to her central nervous system
- I will check an MRI of her C/T/L spine as well as brain
- Unable to use gadolinium given her severe CHARAN with risk for nephrogenic systemic fibrosis
- Continue with vasopressors and wean down as tolerated while maintaining MAP >65
- Continue with broad-spectrum antibiotics, currently with cefepime/IV vancomycin
- Follow-up blood cultures, urine culture and check a sputum culture if she can produce a decent sample
- Check urine antigens for Legionella + strep pneumonia
-Trend serum bicarb level and continue with bicarb drip
- Trend blood gas to assess her pH + pCO2
- Avoid sedating medications if possible as this will worsen her hypercapnia and thus lower her pH
- Monitor for signs of alcohol withdrawal
- MSAS
- Thiamine and folate
- prn ativan
- Pain control
- Replete electrolytes with K>4, Mg>2
- Maintain euglycemia with goal BG 140-180
- Trend H/H and transfuse if needed to keep Hb>7g/dL; keep plt>20k, unless there is concern for bleeding then keep plt>50k
- Incentive spirometer encouraged 10x per hour for at least 4 hrs a day
- DVT ppx: Start HSQ
- Guarded prognosis
Assuming she survives this hospitalization, outpatient Pulmonary office follow-up will be arranged as last visit was on 02/14/2024 with LENNIE Potter.
Critical care statement: A total of 41 minutes of critical care time was provided for this patient today. This includes management of unstable vital signs, evaluation of the patient at bedside, reviewing the patient's pertinent medical records
including radiographs, microbiology, laboratory evaluations, and discussion with primary team, consultants, pharmacy, nutrition, physical therapy, case management, charge nurse, critical care nursing, and respiratory therapy.
Data:
CT Chest/Abd/Pelvis without contrast 09/29/2024:
1. No acute findings within the chest, abdomen, or pelvis.
2. No significant change within the chest, which was imaged only 2 days ago. Near-complete atelectasis of the right lower lobe with bronchial occlusion.
3. Several unchanged small nodules within the apex of the left upper lobe.
4. Unchanged thickened appearance of the left adrenal gland.
5. Chronic T11 compression deformity. Grade 1 anterolisthesis at L5-S1. Several old right-sided rib fractures.
[2024-09-29 10:53] LABS: INR 1.37; PT 17.2 Sec (11.4-14.6)
--- NOTE | 2024-09-29 11:37 | PHA.VAN.IN ---
Assessment
- Assessment
Renal Function: Appears elevated from baseline (SCR 2.5 vs ~0.8)
Concomitant Antimicrobials: cefepime
Plan
- Plan
Initial / Loading Dose: 1500mg - 09/29 10:05
Maintenance Regimen: dosing by level
Monitoring: random 09/30 0600
MRSA Screen: Ordered per protocol
Pharmacokinetics Vancomycin I
- -
Patient Age: 74
Patient Sex: Female
Vancomycin Day #: 1
Indication: Other
Requesting Provider: Dr. Hunter
Pertinent Antimicrobial Allergies:
no pertinent antibiotic allergies
Height / Weight:
Height 5 ft 5 in
Actual Weight 64.4 kg
- Vital Signs / Lab Results
Pulse Resp BP Pulse Ox
106 28 102/78 92
09/29/24 11:15 09/29/24 11:15 09/29/24 11:10 09/29/24 10:00
Lab Results - Hematology
09/29/24
02:35
WBC 12.2 H
Lab Results - Chemistry
09/29/24 09/29/24
02:35 09:41
BUN 30 H 31 H
Creatinine 2.3 H 2.5 H
Estimated Creat Clear 20 18
Albumin 3.4 L
Microbiology Results
09/29/24 09:45 Influenza Types A & B (ALICE) - Final
Nasal Swab Negative for Influenza A & B, NAAT
Negative results must be combined with clinical observations
and patient history.
Nucleic Acid Amplification test (NAAT)performed on the
[employer] platform.
[2024-09-29] MEDS: SUBLIMAZE 50 MCG IV (11:51)
[2024-09-29 12:16] LABS: Urine Albumin 2+ (Neg - Trace); Urine Bilirubin 1+ (Negative); Urine Character Slightly Cloudy (Clear); Urine Color Yellow; Urine Glucose Negative (Negative); Urine Ketone Trace (Negative); Urine Leukocyte 2+ (Negative); Urine Nitrite Positive (Negative); Urine Occult Blood Trace (Negative); Urine Urobilinogen 1+ (Neg - 1+)
[2024-09-29 12:19] LABS: Folate 6.4 ng/ml (2.76-20); Vitamin B12 > 1000 pg/ml (239-931)
[2024-09-29 12:27] LABS: Urine Bacteria Many (Negative); Urine Squamous Cell >30 /LPF (Few)
[2024-09-29 12:28] LABS: Urine Red Blood Cell 0-2 /HPF (0-2); Urine White Cell >100 /HPF (0-5)
[2024-09-29 12:38] LABS: Lactic Acid 1.3 mmol/L (0.7-2.0)
[2024-09-29] MEDS: MAXIPIME 1000 MG IV ×2 (12:48→22:24)
[2024-09-29] MEDS: SODIUM BICARBONATE 1150 MEQ IV ×2 (12:48→22:19)
[2024-09-29] MEDS: MAGNESIUM SULFATE 50 IV (12:48)
[2024-09-29] MEDS: STERILE WATER FOR INJECTION 10 ML IV ×2 (12:49→22:24)
[2024-09-29] MEDS: DILAUDID 0.5 MG IV ×2 (12:52→20:46)
[2024-09-29 13:11] LABS: APTT 44.8 Sec (23.4-35.0)
[2024-09-29] MEDS: SOLU-CORTEF 200 MG IV (13:34)
--- NOTE | 2024-09-29 13:50 | PTCARENOTE ---
patient received@1120 from ED, agitated and screaming 'NO', attempting to pull IV's, climb out of bed. oriented to self. patient hands cold and cyanotic, mottled from knees to feet. +foot drop and +3 pitting lower extremity edema monitor sinus
tachycardia, levophed per work list. prado inserted per order for laura urine. lungs with coarse diminished breath sounds. VAT team at bedside to insert PICC. patient continues to be agitated. medicated with fentanyl with some relief. continues to
exhibit nonverbal pain cues. head of measurement & insights updated, medicated with dilaudid. wrist restraints for patient safety. family at bedside. updated. echo completed.bed alarm on
[2024-09-29 14:22] LABS: Free T3 1.48 pg/ml (2.77-5.27); Free T4 0.98 ng/dl (0.78-2.19)
--- NOTE | 2024-09-29 14:41 | W.PN.UPDATE ---
Update Note
Progress Note Update
as per Endo - pattern of TFT is most likely 2/2 medication non-compliance. Advised to be placed back onto home dose
Steroids to stop with infection
[2024-09-29 14:42] LABS: Osmolality Urine 325 mOsm/kg (300-900)
[2024-09-29 14:50] LABS: Urine Sodium 22 mmol/L (30-90)
--- NOTE | 2024-09-29 14:58 | W.PN.UPDATE ---
Update Note
Progress Note Update
FeNa 0.2% - with recent CT chest contrast - prerenal VS LANRE - hydrate and if no improvement - nephrology consult
[2024-09-29 15:41] LABS: Troponin I 0.336 ng/ml
--- NOTE | 2024-09-29 15:57 | W.PN.UPDATE ---
Update Note
Progress Note Update
No typical cardiac chest pain - reports pains all over the body. EKG without acute changes. Echo without wall motion abnormalities - will cont to monitor Troponin change as most likely 2/2 shock, infection and CHARAN
--- NOTE | 2024-09-29 17:01 | PTCARENOTE ---
patient reassessed. Levophed titration per work list. hospitalist updated with repeat troponin by ngozi text@[email or web address]. patient sleeping unless disturbed. able to follow commands:squeezes hands, wiggles toes weakly, oriented to self only. credit control manager
updated. orders received. for repeat labs@1999, MRI. wrist restraints maintained for patient safety
--- NOTE | 2024-09-29 20:00 | PTCARENOTE ---
Received patient at 1900. Pt. currently in bed. Lethargic. Arousable to voice. Flat affect. Follows simple commands. Denies pain/discomfort at this time. Afebrile. Heart rhythm sinus. Blood pressure normotensive. Currently on room air, lungs sound
diminished. NPO. Everett catheter in place, draining without issue. Skin as documented. Discussed plan of care with patient. Vital signs stable at this time.
[2024-09-29 20:25] LABS: ALT (SGPT) 38 U/L (0-35); AST (SGOT) 184 U/L (14-36); Alkaline Phosphatase 294 U/L (38-126); Blood Urea Nitrogen 35 mg/dl (7-17); Calcium 8.2 mg/dl (8.4-10.2); Carbon Dioxide 18 mmol/L (22-30); Chloride 101 mmol/L (98-107); Estimated Creatinine Clearance 23 ml/min; Glucose 225 mg/dl (70-99); Magnesium 2.2 mg/dl (1.6-2.3); Phosphorus 6.7 mg/dl (2.5-4.5); Potassium 4.1 mmol/L (3.5-5.1); Sodium 136 mmol/L (135-145); Total Bilirubin 0.6 mg/dl (0.2-1.3); eGFR 26.05
[2024-09-29 20:30] LABS: Troponin I 0.376 ng/ml
[2024-09-30] VITALS (24 sets, daily range): BP systolic 87–139; BP diastolic 59–117; BMI 24.2
--- NOTE | 2024-09-30 | PTCARENOTE ---
Pt. assessment unchanged. Titrating Levophed gtt down as tolerated. Vital signs stable at this time.
[2024-09-30] MEDS: HEPARIN 5000 UNITS SC ×2 (01:22→09:06)
--- NOTE | 2024-09-30 04:00 | PTCARENOTE ---
Pt. assessment remains unchanged. AM labs drawn. Vital signs stable at this time.
[2024-09-30 04:01] LABS: Venous Blood Gas B.E. 1.6 mmol/L (-4 to +4); Venous Blood Gas HCO3 27.2 mmol/L (22-27); Venous Blood Gas O2 Sat % 99.2 %; Venous Blood Gas pCO2 46 mmHg (35-48); Venous Blood Gas pH 7.38 (7.32-7.43); Venous Blood Gas pO2 149 mmHg (30-50)
[2024-09-30 04:13] LABS: % Basophils 0.1 % (0-2); % Immature Granulocytes 0.5 % (0-0.5); % Lymphocytes 2.1 % (20.5-51.1); % Monocytes 3.4 % (1.7-9.3); % Neutrophils 93.9 % (42.2-75.2); Absolute Immature Granulocytes 0.1 10^3/uL (0-0.05); Absolute Lymphocytes 0.4 10^3/uL (1.2-3.4); Absolute Monocytes 0.7 10^3/uL (0.1-0.6); Hematocrit 31.7 % (37.0-47.0); Hemoglobin 10.2 g/dL (12.0-16.0); Mean Corp Hgb Conc. 32.2 g/dL (33.0-37.0); Mean Corpuscular Hgb 31.9 pg (27.0-31.0); Mean Corpuscular Volume 99.1 fL (81.0-99.0); Mean Platelet Volume 10.6 fL (7.4-10.4); Nucleated Red Blood Cells % 0.1 %; Platelet Count 239 10^3/uL (130-400); Red Cell Dist. Width 15.7 % (11.5-14.5); White Blood Cell Count 20.3 10^3/uL (4.8-10.8)
[2024-09-30 04:16] LABS: ALT (SGPT) 33 U/L (0-35); AST (SGOT) 115 U/L (14-36); Albumin 2.6 g/dl (3.5-5.0); Alkaline Phosphatase 250 U/L (38-126); Blood Urea Nitrogen 34 mg/dl (7-17); Calcium 7.7 mg/dl (8.4-10.2); Carbon Dioxide 28 mmol/L (22-30); Chloride 100 mmol/L (98-107); Estimated Creatinine Clearance 31 ml/min; Glucose 230 mg/dl (70-99); Magnesium 1.9 mg/dl (1.6-2.3); Phosphorus 4.2 mg/dl (2.5-4.5); Potassium 3.4 mmol/L (3.5-5.1); Sodium 139 mmol/L (135-145); Total Bilirubin 0.4 mg/dl (0.2-1.3); Total Protein 5.3 g/dl (6.3-8.2)
[2024-09-30 04:20] LABS: Vancomycin Random 14.1 ug/ml
[2024-09-30 04:29] LABS: Troponin I 0.354 ng/ml
[2024-09-30] MEDS: DILAUDID 0.5 MG IV ×4 (04:38→20:12)
[2024-09-30] MEDS: KCL 270 MEQ IV (05:52)
[2024-09-30] MEDS: STRIVERDI RESPIMAT 2 PUFF INH (07:18)
[2024-09-30] MEDS: SPIRIVA RESPIMAT 2.5 MCG 2 PUFF INH (07:18)
--- NOTE | 2024-09-30 07:40 | W.PN.INTV ---
Today's Communication / Plan
Recommendations
Transitioning to comfort care
Start comfort feeds
Hospice consulted
Stop all medications unless tailored for comfort
Emotional support provided to the
Since patient is being transitioned to comfort care, she will be downgraded to MedSurg, and we will sign off. Please call back with any questions or concerns.
Assessment
-
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
back s/p wide excision, anxiety/depression, invasive lobular carcinoma (diagnosed in August 2022), hypothyroidism, insomnia, chronic middle back pain, constipation, cataracts s/p surgery with lens implant and history of diverticulitis who presents
with an unwitnessed fall. Patient was found in the kitchen by her . She reportedly hit her head and had neck discomfort. She was found to be mildly hypoxic via EMS. She initially declined to go to the hospital. Her , Wilfrido, said
that she has been declining for few months but has been refusing to go see a doctor. Patient is DNR/DNI as per the . Initially in the ER she was tachycardic to 121, breathing at 23 breaths/min, BP 119/71 and was saturating 99% on 4 L/min.
Initial labs showed WBC 12.2, Hb 11.2, pH 7.18, serum bicarbonate level 17, creatinine 2.3, magnesium 1.5, troponin 0.146, proBNP >27,000, TSH 32.2, free T4 was 0.98, urinalysis with positive nitrites and 2+ leukocyte esterase, and COVID-19 antigen
negative. Flu A/B swab was negative, and blood and urine cultures were collected. CT cervical spine showed no acute findings, and CT head showed no acute intracranial abnormality although it did show an aggressive new lytic lesion in the left
frontal calvarium measuring 3.1 cm suspicious for lytic metastasis versus multiple myeloma. CXR showed right sided volume loss which was seen on prior CT chest on 09/27/2024. Subsequent CT chest/abdomen/pelvis showed no significant change within
chest, with near complete atelectasis of the right lower lobe with bronchial occlusion likely due to endobronchial malignancy, and also several nodules within the apex of the left upper lobe. She had a CT chest 2 days prior ordered by the PCP but
the family was not aware of the results.
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
insomnia, former tobacco smoker, chronic middle back pain, constipation, cataracts, history of asthma, hypothyroidism, rib fractures, recurrence of right middle lobe low-grade adenocarcinoma (05/2020), breast cancer (08/2022) � invasive lobular
carcinoma
Impression:
#Right mainstem bronchus occlusion with near complete atelectasis of the right lower lobe with small right pleural effusion (also seen on prior CT chest from 09/27/2024)
#Acute respiratory failure with hypoxia due to above
#Shock likely due to sepsis in the setting of UTI and possible right lower lobe post-obstructive pneumonia
#Unwitnessed fall with head strike
#Leukocytosis
#Chronic anemia
#Metabolic acidosis with increased anion gap and respiratory acidosis; metabolic acidosis due to severe CHARAN
#CHARAN
#Hypomagnesemia
#Elevated ALP possibly due to lung cancer with mets
#Elevated troponin likely due to demand ischemia with type II [place]
#Elevated proBNP of >27,000 (no baseline value)
#Abnormal TFTs with elevated TSH at 32.2 with normal free T4 and low free T3
#Abnormal urinalysis with positive nitrites, 2+ esterase and >100 urine WBC concerning for UTI
#Alcohol use with 1�2 drinks of vodka per day
#Former tobacco use (48-hrqa-flni history, quit 2014)
#History of moderate COPD with significant bronchodilator response with air trapping and hyperinflation with moderate gas exchange capacity defect (via PFTs in 07/16/2020)
#History of right-sided lung adenocarcinoma (originally diagnosed via CT-guided biopsy on 03/15/2017 - of note prior nodule was in the posterior lateral right middle lobe; found to have a NSCLC recurrence via right lung CT-guided biopsy on 05/28/2020
which showed moderately differentiated adenocarcinoma
Plan:
-I spoke with the patient's and [id number] today, Wilfrido Robert and Irene. They are interested in transitioning to comfort care
-Stop all medications unless tailored for comfort
-Discontinue the MRI and any blood draws/fingersticks
-Okay to start comfort feeds, family accepts aspiration risk
-Emotional support was provided
-Leadership Program Internship offered
-Stop DVT prophylaxis
Since patient is being transitioned to comfort care, [facility], and we will sign off. Thank you for allowing us to be involved in the care of this patient. Please call back with any questions or concerns.
Data:
CT Chest/Abd/Pelvis without contrast 09/29/2024:
1. No acute findings within the chest, abdomen, or pelvis.
2. No significant change within the chest, which was imaged only 2 days ago. Near-complete atelectasis of the right lower lobe with bronchial occlusion.
3. Several unchanged small nodules within the apex of the left upper lobe.
4. Unchanged thickened appearance of the left adrenal gland.
5. Chronic T11 compression deformity. Grade 1 anterolisthesis at L5-S1. Several old right-sided rib fractures.
Total time spent today was 42 minutes for this encounter. Time includes reviewing laboratory test/imaging results, reviewing pertinent medical records, obtaining and reviewing medical history, performing an appropriate exam, ordering medications,
tests and procedures. Time also includes documentation of this encounter, coordinating patient care and communicating with other healthcare professionals. Total time does not include separately billed tests performed on this date of service.
Subjective Dataa
Subjective Data
Date of Service:
Date of Service: September 30, 2024
Chief Complaint: Railroad Wheels And Axle Inspector Follow Up
Subjective:
Patient seen and evaluated today at bedside. She had refused the MRI imaging from yesterday and is still not interested in getting this done. She is now weaned off of Levophed as of this morning. Currently saturating 94% on 6 L/min with BP 117/87
and heart rate 100. and sister in law at bedside and all questions were answered. They are interested in transitioning to comfort care (see separate update note).
Review of Systems
General: Other (Unable to obtain given patient's acute clinical status/fatigue/confusion)
Objective Data
Data Reviewed
Vital Signs / I&O / Oxygen:
Vital Signs
Temp Pulse Resp BP Pulse Ox
97.9 F 94 18 87/61 95
09/30/24 07:00 09/30/24 07:21 09/30/24 07:21 09/30/24 06:00 09/30/24 07:21
Intake and Output
09/29/24 09/30/24 10/01/24
06:59 06:59 06:59
Intake Total 4263.9 / 4263.9
Output Total 570 / 570
Balance 3693.9 / 3693.9
SaO2 95
Nasal Cannula flow liters per 6
minute
Physical Exam
General: Respiratory Distress (negative), Chills (negative), Sweats (negative) and Other (Agitated)
HEENT: Normocephalic and Anicteric
Cardiovascular: S1-S2, Peripheral Edema (negative) and Other (Tachycardic)
Respiratory: Wheeze (negative), Crackles (Bilateral), Rhonchi (negative), Non-Labored Respirations and Stridor (negative)
GI: Soft, Non Distended, Non Tender and Normal Bowel Sounds
Neurology: Tremors (negative), Lethargic and Other (Agitated at times and confused; trying to sit up and get out of bed)
Skin: Warm, Dry, Cyanosis (negative) and Jaundice (negative)
Labs/Micro/Reports
Lab Data
09/30/24 03:49
09/30/24 03:49
Laboratory Results
09/29/24 09/29/24
02:35 12:41
PT 17.2 H
INR 1.37
APTT Cancelled 44.8 H
Microbiology
09/29/24 12:41 Nose Nasal Screen MRSA (PCR) - Final
MRSA not detected - performed by PCR methodology.
09/29/24 09:45 Nasal Swab Influenza Types A & B (ALICE) - Final
Negative for Influenza A & B, NAAT
Negative results must be combined with clinical observations
and patient history.
Nucleic Acid Amplification test (NAAT)performed on the
[employer] platform.
--- NOTE | 2024-09-30 07:45 | PTCARENOTE ---
Received patient from front facer. patient is disoriented, bilateral soft limb wrist restraints on. She is on 6L nasal cannula. She is sinus tach on monitor. Levophed infusing into right triple lumen PICC. Patient is NPO, prado for urine. Will
review orders. Patient is disoriented, agitated, trying to climb out of bed.
[2024-09-30] MEDS: LEVOPHED 250 IV (08:17)
--- NOTE | 2024-09-30 08:41 | PHA.VAN.FU ---
Vancomycin Assessment / Plan
- Assessment
Renal Function: SCR Decreasing
WBC's are: Trending Up
In the past 24 hrs, patient has been: Afebrile
Concomitant Antimicrobials: CEFEPIME
- Assessment - Therapeutic Drug Monitoring
Random Level: 14.1
- Dosing Plan
Dosing by Level: Re-dose today (500MG)
- Monitoring Plan
Random Level: 10/01 IN AM
- Follow Up
Pharmacy will continue to follow.
Vancomycin Follow UP
- -
Patient Age: 74
Patient Sex: Female
Vancomycin Day #: 2
Indication: Other
Requesting Provider: Dr. Hunter
Pertinent Antimicrobial Allergies:
no pertinent antibiotic allergies
Height / Weight:
Height 5 ft 5 in
Actual Weight 66 kg
- Vital Signs / Lab Results
Temp Pulse Resp BP Pulse Ox
97.9 F 91 13 128/88 95
09/30/24 07:00 09/30/24 07:30 09/30/24 07:30 09/30/24 07:30 09/30/24 07:30
Lab Results - Hematology
09/29/24 09/30/24
02:35 03:49
WBC 12.2 H 20.3 H
Lab Results - Chemistry
09/29/24 09/29/24 09/29/24
02:35 09:41 19:58
BUN 30 H 31 H 35 H
Creatinine 2.3 H 2.5 H 2.0 H
Estimated Creat Clear 20 18 23
Albumin 3.4 L 3.0 L
09/30/24
03:49
BUN 34 H
Creatinine 1.5 H
Estimated Creat Clear 31
Albumin 2.6 L
09/29/24 09/29/24 09/29/24
11:59 17:15 23:15
Lactic Acid 1.3 Cancelled Cancelled
Lab Results - Urine
09/29/24 09/29/24 09/29/24
11:59 11:59 11:59
Urine Nitrite (Reflex) Positive A Cancelled
Leukocyte Esterase Rfl 2+ A Cancelled
Ur Squamous Epith Cells >30
Microbiology Results
09/29/24 19:57 Legionella Urinary Antigen - Final
Urine Negative for Legionella pneumophila Serogroup 1 antigen.
A negative result does not rule out the possiblity of
Legionella infection due to other serogroups or species of
Legionella. Clinical correlation is recommended.
Streptococcus pneumoniae Antigen (M - Final
Negative for Streptococcus pneumoniae antigen.
A negative result does not exclude infection with
Streptococcus pneumoniae. Clinical correlation is
recommended.
09/29/24 12:41 Nasal Screen MRSA (PCR) - Final
Nose MRSA not detected - performed by PCR methodology.
09/29/24 09:45 Influenza Types A & B (ALICE) - Final
Nasal Swab Negative for Influenza A & B, NAAT
Negative results must be combined with clinical observations
and patient history.
Nucleic Acid Amplification test (NAAT)performed on the
[employer] platform.
Therapeutic Drug Monitoring
Random Vancomycin 14.1 ug/ml 09/30/24 03:49
[2024-09-30] MEDS: SODIUM BICARBONATE 1150 MEQ IV (09:06)
--- NOTE | 2024-09-30 09:15 | W.PN.HOSP.TC ---
Addendum entered and electronically signed by Arturo Hunter MD 09/30/24 09:20:
Worsened leukocytosis but mentation improved, not lethargic, weaning off Levophed - most likely increase 2/2 steroids on the day prior - will follow
Acidosis resolved - switch to non-bicarb fluid
Speech screening with goal to start diet
Original Note:
Today's Communication/Plan
-
COnt Abx
Imaging and Oncology eval
Will need to repeat GOC discussion with family
Assessment / Plan
Assessment / Plan
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
PAtient was declining to go to the hospital, as per . In ED found hypotensive, with septic shock without clear source. Head CT with new lythic lesion. As per conversation with - patient is DNR/DNI however he would like to continue all
other possible medical intervention.
A/P:
#Septic shock 2/2 postobstuctive pneumonia
#Right-sided volume loss with mediastinal shift secondary to occlusion of the right lower lobe bronchus
#Septic encephalopathy
#BYRON nodules with known Hx of lung CA
IVF
Pressors and wean as tollerated
UA/Bcx
Event Sales Assistant/Pulm consult
COVID-19 neg, check Influenza
Sputum Cx
MRI brain and spine in voiew of Hx of untreated CA
Oncology consult
#Elevated TSH
#Hypothyroidism
normal FT4 and low FT3
discussed with endo: pattern of TFT is most likely 2/2 medication non-compliance. Advised to be placed back onto home dose
Steroids to stop with infection
#Daily alcohol abuse
MSAS with ativan
Thiamine/FOlate
watch for DT
#UTI
#CHARAN with metabolic acidosis
follow Ucx
No hydronephrosis or nephrolithiasis on CT
baseline CR 0.8-1.2
FeNa 0.2% - with recent CT chest contrast - prerenal VS LANRE - improving on IVF
follow Cr
CT abd/pelvis
[place]
Urine studies
#Hypomagnesemia
replete and follow
#Alk.phos elevation
possibly 2/[address] abd neg for biliary pathology
US RUQ
#Mild anemia
Anemia w/u
#Fall
#Back pain
CT head/neck without trauma
eval CT spine on CT C/A/P - without significant osseous abnormality
#COPD, emphysema
cont bronchodilators
#Troponin elevation 2/2 septic shock
Peaked 0.376 - now decreasing
EKG without ST elevation
typical cardiac chest pain - reports pains all over the body. EKG without acute changes. Echo without wall motion abnormalities - will cont to monitor Troponin change as most likely 2/2 shock, infection and CHARAN
#essential HTN
hold BP until shock resolves
#old right lateral rib fractures.
#Chronic T11 compression fracture.
#Grade 1 anterolisthesis at L5-S1
Tylenol, PT/OT
#Anxiety d/o
restart Xanax as shock resolved
DVT ppx on hep
DNR/DNI as per detailed conversation with
I have spent at least 59min reviewing chart, test results, communication with consultants and direct patient care
Anticipated Discharge: > 48 hours
Subjective/Interval History
-
Date of Service: September 30, 2024
Objective Data
-
Labs:
Laboratory Results
09/30/24
03:49
WBC 20.3 H
Hgb 10.2 L
Hct 31.7 L
Plt Count 239 D
Sodium 139
Potassium 3.4 L
Chloride 100
Carbon Dioxide 28
BUN 34 H
Creatinine 1.5 H
Glucose 230 H
Calcium 7.7 L
Total Bilirubin 0.4
AST 115 H
ALT 33
Alkaline Phosphatase 250 H
Vital Signs:
Vital Signs
Temp Pulse Resp BP Pulse Ox
97.9 F 91 13 128/88 95
09/30/24 07:00 09/30/24 07:30 09/30/24 07:30 09/30/24 07:30 09/30/24 07:30
I&O
09/29/24 09/30/24 10/01/24
06:59 06:59 06:59
Intake Total 4263.9 / 4378.9 230 / 230
Output Total 570 / 610 80 / 80
Balance 3693.9 / 3768.9 150 / 150
Review of Systems
-
History Source: Patient
All other systems: Reviewed and negative
Physical Exam
-
General: Negative Respiratory Distress or Pain
HEENT: Normocephalic and Atraumatic
Respiratory: Clear to Auscultation
Cardiac: Regular Rhythm
GI: Soft, Nontender and Nondistended
Genito-urinary: Clear Urine and Everett
Musculoskeletal: No Clubbing, No Cyanosis and No Edema
Neuro: Awake, Alert, Oriented and AO x 3
Psych: Agitated
[2024-09-30] MEDS: D5LR 1000 IV (09:53)
[2024-09-30] MEDS: MAXIPIME 1000 MG IV (09:55)
[2024-09-30] MEDS: STERILE WATER FOR INJECTION 10 ML IV (09:55)
[2024-09-30] MEDS: VANCOCIN HCL 500 MG 100 IV (10:05)
--- NOTE | 2024-09-30 11:02 | W.PN.UPDATE ---
Update Note
Progress Note Update
Had a conversation this morning with the patient's , Wilfrido Jones, and the sister, Irene. The patient is refusing the MRI and just wants to eat. Additional goals of care discussion held with the family and they want to transition her
to comfort care with comfort feeds. Orders will be placed, hospice nurse will be contacted and patient will be evaluated for GIP. Emotional support was provided to the family and all questions were answered.
[2024-09-30] MEDS: STERILE WATER FOR INJECTION 2.1 ML IM (11:35)
[2024-09-30] MEDS: ZYPREXA 10 MG IM (11:36)
[2024-09-30 11:39] LABS: Glycohemoglobin (HgbA1c) 5.3 % (4.0-5.6)
--- NOTE | 2024-09-30 11:52 | PTCARENOTE ---
Addendum entered by Trena Messer RN 09/30/24 11:53:
Comfort feeds allowed, thorough mouth care completed and clear liquids ordered.
Original Note:
Transitioning patient to comfort care. zyprexa given to agitation
--- NOTE | 2024-09-30 14:05 | W.PN.UPDATE ---
Update Note
Progress Note Update
bedside - after detailed conversation with celery wrapper and as confirmed with shoe repair cobbler - he wishes to initiate comfort care. He understand that all active treatment and tests will be stopped and patient will be provided symptomatic treatment
for dyspnea, anxiety, constipation, retention only. He verbalized agreement and understanding of this approach. Hospice consult placed by Ios Software Engineer
--- NOTE | 2024-09-30 14:26 | CM ---
CM following re: discharge planning.
Reviewed pt's chart, met with pt. Pt's and sister in law at bedside.
pt is a 74 year old female, admitted with primary dx of Acute respiratory failure with hypoxia, shock.
Pt lives with in a 2 story apartment, stays on the first floor. has no children. Per pt has been ambulating with a walker and fell at home. Pt's expressed his full understanding of pt's current health condition and he feels
that comfort care/hospice care will be most appropriate level of care at this time. Pt's is aware that pt is on comfort measure and pt's prefers hospice with expectation that pt will stay inpatient hospice. Emotional support
offered and provided.
A referral to hospice made.
D/C plan: hospice with hospice, most likely inpatient hospice.
CM is available for emotional support.
--- NOTE | 2024-09-30 14:42 | HOSPNOTE ---
Hospice referral received. Will follow up with the family tomorrow morning to provide them with information about Hospice services. Will admit if the patient meets criteria and the family agrees
[2024-09-30] MEDS: ATIVAN 0.5 MG IV ×2 (14:50→20:11)
--- NOTE | 2024-09-30 16:20 | CHAP ---
Asked by nurses to visit. [id number] was present at bedside. Emotional and spiritual support provided.
--- NOTE | 2024-09-30 19:15 | PTCARENOTE ---
Received patient at 1900. Pt. currently in bed. Lethargic, but arousable. Denies pain/discomfort. Heart rhythm sinus. Currently on nasal cannula. Lungs sound diminished. Clear liquid diet ordered, poor appetite. Everett catheter in place, draining
without issue. Skin as documented. Discussed plan of care with patient. Vital signs stable at this time.
[2024-10-01] MEDS: DILAUDID 0.5 MG IV ×4 (02:40→12:10)
[2024-10-01] MEDS: ATIVAN 0.5 MG IV ×3 (02:40→12:10)
[2024-10-01 03:04] VITALS: BP 141/93
[2024-10-01 07:29] VITALS: BP 148/107
--- NOTE | 2024-10-01 08:51 | W.PN.HOSP.TC ---
Today's Communication/Plan
-
D/C to inpatient hospice
Assessment / Plan
Assessment / Plan
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
PAtient was declining to go to the hospital, as per . In ED found hypotensive, with septic shock without clear source. Head CT with new lithic lesion. US liver with mass. Patient agitated and confused. After detailed conversation with
and route relief driver and as confirmed with window trimmer - he wishes to initiate comfort care. He understand that all active treatment and tests will be stopped and patient will be provided symptomatic treatment for dyspnea, anxiety, constipation, retention
only. He verbalized agreement and understanding of this approach. Hospice consult placed by Music Library Assistant and patient eligible for inpatient hospice
A/P:
#Septic shock 2/2 postobstructive pneumonia
#Right-sided volume loss with mediastinal shift secondary to occlusion of the right lower lobe bronchus
#Septic encephalopathy
#BYRON nodules with known Hx of lung CA
#Elevated TSH
#Hypothyroidism
#Daily alcohol abuse
#UTI
#CHARAN with metabolic acidosis
#Hypomagnesemia
#Alk.phos elevation
#Livewr mass
#Mild anemia
#Fall
#Back pain
#COPD, emphysema
#Troponin elevation 2/2 septic shock
#essential HTN
#old right lateral rib fractures.
#Chronic T11 compression fracture.
#Grade 1 anterolisthesis at L5-S1
#Anxiety d/o
Comfort care only
DVT ppx on hep
DNR/DNI as per detailed conversation with
I have spent at least 39min reviewing chart, test results, communication with consultants and direct patient care
Anticipated Discharge: Within 24 hours
Subjective/Interval History
-
Date of Service: October 01, 2024
Objective Data
-
Vital Signs:
Vital Signs
Temp Pulse Resp BP Pulse Ox
99.6 F 98 14 141/93 93
10/01/24 08:31 10/01/24 06:00 10/01/24 06:00 10/01/24 03:04 09/30/24 19:30
I&O
09/30/24 10/01/24 10/02/24
06:59 06:59 06:59
Intake Total 4263.9 / 4378.9 480 / 480 0 / 0
Output Total 570 / 610 700 / 700
Balance 3693.9 / 3768.9 -220 / -220 0 / 0
Review of Systems
-
Unable to obtain full review of systems at this time due to: Acuity
Physical Exam
-
General: No Apparent Distress
Neuro: Awake, Alert and Sedated
Psych: Calm and Confused
--- NOTE | 2024-10-01 09:06 | PTCARENOTE ---
recd handoff bedside, tolerating 4l nc, restless, noted back pain, med as noted. skin warm, dry. restless at times, positioned for comfort.
--- NOTE | 2024-10-01 10:51 | CHAP ---
Asked by nursing to visit. Romelia was less responsive today. Wilfrido at bedside - he acknowledged how difficult it is, having lost a daughter two years ago today. Emotional and spiritual support provided, a long with a prayer blanket and
assurance of our on-going availability.
--- NOTE | 2024-10-01 11:07 | HOSPNOTE ---
Spoke with the patients this morning regarding Hospice care and Philosophy. He agreed to a Hospice GIP admission . He understands that if the patient stabilizes enough to be transferred home for in home Hospice that option will be considered.
--- NOTE | 2024-10-01 11:24 | W.DCSUMMARY ---
Discharge Summary
Discharge Data
Date of Admission: 09/29/24
Date of Discharge: 10/01/24
-
Pending Results: No
Hospital Course
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
PAtient was declining to go to the hospital, as per . In ED found hypotensive, with septic shock without clear source. Head CT with new lithic lesion. US liver with mass. Patient agitated and confused. After detailed conversation with
and career information specialist and as confirmed with supervisor logging - he wishes to initiate comfort care. He understand that all active treatment and tests will be stopped and patient will be provided symptomatic treatment for dyspnea, anxiety, constipation, retention
only. He verbalized agreement and understanding of this approach. Hospice consult placed by Site Physician and patient eligible for inpatient hospice
A/P:
#Septic shock 2/2 postobstructive pneumonia
#Right-sided volume loss with mediastinal shift secondary to occlusion of the right lower lobe bronchus
#Septic encephalopathy
#BYRON nodules with known Hx of lung CA
#Elevated TSH
#Hypothyroidism
#Daily alcohol abuse
#UTI
#CHARAN with metabolic acidosis
#Hypomagnesemia
#Alk.phos elevation
#Livewr mass
#Mild anemia
#Fall
#Back pain
#COPD, emphysema
#Troponin elevation 2/2 septic shock
#essential HTN
#old right lateral rib fractures.
#Chronic T11 compression fracture.
#Grade 1 anterolisthesis at L5-S1
#Anxiety d/o
Comfort care only
I have spent at least 39min reviewing chart, test results, communication with consultants and direct patient care
Discharge Plan
-
Patient Disposition: Hospice - Inpatient [facility]
Discharge Orders:
Discharge Patient (As Directed); Ordered 10/01/24
Ordered By: Arturo Hunter
Discharge Date and Time
Print Language: SERBIAN
--- NOTE | 2024-10-01 12:05 | CM ---
CM following re: discharge planning.
Reviewed pt's chart, met with pt. Pt's and sister in law at bedside.
Pt is accepted for admission to inpatient hospice with GIP and pt will be transported to .
D/C plan: Inpatient hospice with hospice GIP.
CM is available for emotional support.
--- NOTE | 2024-10-01 12:19 | HOSPNOTE ---
Met with patients Wilfrido Jones and patients sister reviewed hospice care, understanding stated. Reviewed inpatient hospice care vs. hospice care at home. Patient requires GIP level of hospice care to manage severe pain and dyspnea and patient
unable to swallow PO medications. Patient's signed hospice consents.
[2024-10-01 12:50] VITALS: BP 115/78
--- NOTE | 2024-10-01 12:54 | PTCARENOTE ---
to be readmitted inpatient hospice. family present. med as noted. awaiting bed on 2N.
[2024-10-02 18:53] LABS: Hepatitis C Antibody Negative (Negative)
[2024-10-03 10:01] LABS: Albumin 2.35 g/dL (3.75-5.01); Alpha 1 Globulin 0.51 g/dL (0.19-0.46); Alpha 2 Globulin 0.72 g/dL (0.48-1.05); SPEP IFE Reflex Not Done; Total Protein-Electrophoresis 5.2 g/dL (6.3-8.2)
== END 2024-10-01 12:55 | disposition hospice, inpatient (51) | DRG 871 ==
LOC: ICU 10:41
PROVIDERS: Emergency Medicine; Radiology Diagnostic Radiology; ADMITTING PHYSICIAN Internal Medicine; CONSULT PHYSICIAN Internal Medicine Critical Care Medicine; EMERGENCY PHYSICIAN Emergency Medicine; FAMILY PHYSICIAN Internal Medicine
PROC: 02HV33Z Insertion of Infusion Device into Superior Vena Cava, Percutaneous Approach (ICD-10-PCS; 2024-09-29)
PROC: 5A09357 Assistance with Respiratory Ventilation, Less than 24 Consecutive Hours, Continuous Positive Airway Pressure (ICD-10-PCS; 2024-10-01)
DX: A41.9 Sepsis, unspecified organism (principal); G93.41 Metabolic encephalopathy; J18.9 Pneumonia, unspecified organism; R65.21 Severe sepsis with septic shock; J96.01 Acute respiratory failure with hypoxia; N17.9 Acute kidney failure, unspecified; Z66 Do not resuscitate; Z51.5 Encounter for palliative care; N39.0 Urinary tract infection, site not specified; J44.0 Chronic obstructive pulmonary disease with (acute) lower respiratory infection; C34.12 Malignant neoplasm of upper lobe, left bronchus or lung; J98.11 Atelectasis; L51.1 Stevens-Johnson syndrome; M48.54XA Collapsed vertebra, not elsewhere classified, thoracic region, initial encounter for fracture; I10 Essential (primary) hypertension; J45.20 Mild intermittent asthma, uncomplicated; E03.9 Hypothyroidism, unspecified; E78.00 Pure hypercholesterolemia, unspecified; E83.42 Hypomagnesemia; D53.9 Nutritional anemia, unspecified; F10.10 Alcohol abuse, uncomplicated; F41.9 Anxiety disorder, unspecified; K59.00 Constipation, unspecified; J43.9 Emphysema, unspecified; Z11.52 Encounter for screening for COVID-19; Z92.3 Personal history of irradiation; Z87.891 Personal history of nicotine dependence; Z85.3 Personal history of malignant neoplasm of breast; Z92.21 Personal history of antineoplastic chemotherapy; Z79.890 Hormone replacement therapy; Z79.891 Long term (current) use of opiate analgesic
CPT/HCPCS: 70450; 71045; 71046; 71250; 72125; 74176; 76700; 80048; 80053; 80202; 81003; 81015; 82570; 82607; 82746; 82805; 83036; 83605; 83735; 83880; 83935; 84100; 84155; 84165; 84300; 84439; 84443; 84481; 84484; 85025; 85027; 85610; 85730; 86803; 87040; 87086; 87088; 87186; 87449; 87502; 87641; 87811; 87899; 93005; 93306; 93970; 94640; 96365; 96366; 96367; 96375; 99291; J2358

== ENCOUNTER 2024-10-01 12:59 | Inpatient (IN) | payer OTHER, SELFPAY ==
--- NOTE | 2024-10-01 13:14 | HPS.HSE ---
Family Physician
-
Family Physician: INTERVIEWE UNKNOWN - PT NOT
Chief Complaint
-
hospice
History of Present Illness
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
PAtient was declining to go to the hospital, as per . In ED found hypotensive, with septic shock without clear source. Head CT with new lithic lesion. US liver with mass. Patient agitated and confused. After detailed conversation with
and roofer vinyl coating and as confirmed with construction controller - he wishes to initiate comfort care. He understand that all active treatment and tests will be stopped and patient will be provided symptomatic treatment for dyspnea, anxiety, constipation, retention
only. He verbalized agreement and understanding of this approach. Hospice consult placed by Silica Mixer Operator and patient eligible for inpatient hospice
Medical History
Past Medical History
Past Medical History: Reports Other
Additional Past Medical History:
see HPI
Past Surgical History: Reports Other
Additional Past Surgical History:
See HPI
Social History
Tobacco: Former Smoker
Alcohol: Daily
Drug: None
Family History
Family History: Not pertinent
Allergies / Home Medications
Allergies reflects when Allergies were last updated in [facility].
Home Medications with original date entered in [facility]
Allergy/Medication List:
Allergies
Allergy/AdvReac Type Severity Reaction Status Date / Time
paclitaxel [From Taxol] Allergy [place] Verified 09/29/24 01:45
[place]
Home Medications
umeclidinium 62.5 mcg-vilanterol 25 mcg/actuation powdr for inhalation (Anoro Ellipta) 1 puff inhalation R BID Lung/Breathing Issues 02/25/21
alprazolam 0.5 mg tablet 0.5 mg PO BID Sleep 09/03/21
calcium 600 mg (as carbonate)-vitamin D3 10 mcg (400 unit) tablet (Calcium 600 + D(3)) 1 tab PO DAILY Supplement 01/01/23
docusate sodium 100 mg capsule (Colace) 100 mg PO BIDPRN PRN constipation 09/29/24
levothyroxine 88 mcg tablet (Synthroid) 88 mcg PO DAILY Thyroid 09/29/24
olmesartan 40 mg tablet (Benicar) 40 mg PO DAILY Blood Pressure 09/29/24
oxycodone-acetaminophen 7.5 mg-325 mg tablet 1 tab PO QID Pain 09/29/24
Review of Systems
-
Unable to obtain full review of systems at this time due to: Acuity
Physical Exam
Physical Exam
General: No Apparent Distress and Comfortable
Respiratory: Clear
Cardiac: Regular Rhythm
GI: Soft, Non Tender and Non Distended
Genito-urinary: Clear Urine
Musculoskeletal: No Clubbing, No Cyanosis and No Edema
Skin: Warm
Neuro: Awake, Alert, Oriented and AO x 3
Psych: Calm
Impression/Plan
-
A/P:
#Septic shock 2/2 postobstructive pneumonia
#Right-sided volume loss with mediastinal shift secondary to occlusion of the right lower lobe bronchus
#Septic encephalopathy
#BYRON nodules with known Hx of lung CA
#Elevated TSH
#Hypothyroidism
#Daily alcohol abuse
#UTI
#CHARAN with metabolic acidosis
#Hypomagnesemia
#Alk.phos elevation
#Livewr mass
#Mild anemia
#Fall
#Back pain
#COPD, emphysema
#Troponin elevation 2/2 septic shock
#essential HTN
#old right lateral rib fractures.
#Chronic T11 compression fracture.
#Grade 1 anterolisthesis at L5-S1
#Anxiety d/o
Comfort care only
I have spent at least 40min reviewing chart, test results, communication with consultants and direct patient care
--- NOTE | 2024-10-01 13:27 | PTCARENOTE ---
admitted as new account inpatient hospice, remains in current room 3359 awaiting transfer to . no change, comfortable, see assessment in previous patient account, resting quietly, skin warm and dry.
[2024-10-01 13:28] VITALS: BP 115/78
[2024-10-01] MEDS: MORPHINE SULFATE 1 MG IV ×3 (15:06→20:28)
--- NOTE | 2024-10-01 15:15 | TRANSFER ---
moved into new bed, transport to new room 2127 with all belongings and family. requested water, given few drops in new room, small amount coughing. update/handoff to next RN.
--- NOTE | 2024-10-01 16:31 | TRANSFER ---
pt came form ICU, family at bedside, PRN dose of Morphine given due to discomfort and moaning, call trinidad within reach.
[2024-10-01] MEDS: ATIVAN 0.5 MG IV ×2 (16:47→20:27)
[2024-10-01] MEDS: NSS (PRESERVATIVE FREE) 0.25 ML IV (16:48)
[2024-10-01 19:07] VITALS: BP 151/96
[2024-10-02] MEDS: MORPHINE SULFATE 1 MG IV ×4 (00:44→11:07)
[2024-10-02] MEDS: ATIVAN 0.5 MG IV ×7 (00:44→21:52)
[2024-10-02 07:03] VITALS: BP 129/92
--- NOTE | 2024-10-02 08:33 | W.PN.HOSP.TC ---
Today's Communication/Plan
-
Continue comfort care measures only
Assessment / Plan
Assessment / Plan
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
week. PAtient was declining to go to the hospital, as per . In ED found hypotensive, with septic shock without clear source. Head CT with new lithic lesion. US liver with mass. Patient agitated and confused. After detailed conversation with
and director of contracts and as confirmed with rewinder - he wishes to initiate comfort care. He understand that all active treatment and tests will be stopped and patient will be provided symptomatic treatment for dyspnea, anxiety, constipation,
retention only. He verbalized agreement and understanding of this approach. Hospice consult placed by Manual Arts Therapy Teacher and patient eligible for inpatient hospice
#Septic shock 2/2 postobstructive pneumonia
#Right-sided volume loss with mediastinal shift secondary to occlusion of the right lower lobe bronchus
#Septic encephalopathy
#BYRON nodules with known Hx of lung CA
#Elevated TSH
#Hypothyroidism
#Daily alcohol abuse
#UTI
#CHARAN with metabolic acidosis
#Hypomagnesemia
#Alk.phos elevation
#Livewr mass
#Mild anemia
#Fall
#Back pain
#COPD, emphysema
#Troponin elevation 2/2 septic shock
#essential HTN
#old right lateral rib fractures.
#Chronic T11 compression fracture.
#Grade 1 anterolisthesis at L5-S1
#Anxiety d/o
Continue comfort care measures only
Updated at bedside 10/02
Physical Exam
General: Appears chronically ill, no acute distress
HEENT: Normocephalic, Atraumatic, EOMI, MMM
Respiratory: Clear to Auscultation bilaterally
Cardiac: Normal S1/S2, tachycardic rate
GI: Soft, Nontender, Nondistended, Normal Bowel Sounds
Extremities: No Clubbing, Cyanosis, or Edema
Anticipated Discharge: 24 - 48 hours
Subjective/Interval History
-
Date of Service: October 02, 2024
Patient seen with at bedside. She is in pain, unclear where. She is not able to eat. Had fever, no vomiting.
Objective Data
-
Vital Signs:
Vital Signs
Temp Pulse Resp BP Pulse Ox
98.4 F 106 20 129/92 97
10/02/24 07:03 10/02/24 07:03 10/01/24 13:28 10/02/24 07:03 10/02/24 07:03
I&O
10/01/24 10/02/24 10/03/24
06:59 06:59 06:59
Intake Total 240 / 240
Output Total 1800 / 1800
Balance -1560 / -1560
[2024-10-02] MEDS: ROBINUL 0.2 MG IV ×3 (09:54→19:08)
[2024-10-02] MEDS: NSS (PRESERVATIVE FREE) 0.25 ML IV ×2 (10:08→14:22)
[2024-10-02] MEDS: MORPHINE SULFATE 2 MG IV ×8 (12:09→21:59)
[2024-10-02] MEDS: MORPHINE 100 IV (12:19)
--- NOTE | 2024-10-02 13:43 | HOSPNOTE ---
Patient was washed and repositioned. Patient has received multiple doses and a morphine drip will be started. Emotional support provided to family and family in agreement with pain management. Patient continues to be inpatient appropriate for pain
management. Patient will be seen daily by hospice nurse.
[2024-10-02 19:16] VITALS: BP 120/86
[2024-10-02] MEDS: MORPHINE SULFATE 4 MG IV (22:48)
[2024-10-03] MEDS: ROBINUL 0.2 MG IV ×2 (02:06→06:00)
[2024-10-03 07:10] VITALS: BP 63/40
[2024-10-03] MEDS: MORPHINE SULFATE 4 MG IV (07:50)
--- NOTE | 2024-10-03 08:51 | W.PN.DEATH ---
Pronouncement of
-
Called to see patient to pronounce.
No spontaneous heart tones or respirations noted.
Patient not responsive to verbal stimuli.
Patient is pronounced .
Time of : 08:20
Date of : 10/03/24
Cause of : Septic shock, postobstructive pneumonia
Family Notified: Yes
== END 2024-10-03 08:20 | disposition expired | DRG 951 ==
LOC: 2 NORTH 12:59
PROVIDERS: ADMITTING PHYSICIAN Internal Medicine; ATTENDING PHYSICIAN Family Medicine
DX: Z51.5 Encounter for palliative care (principal); A41.9 Sepsis, unspecified organism; J18.9 Pneumonia, unspecified organism; G93.41 Metabolic encephalopathy; R65.21 Severe sepsis with septic shock; E87.20 Acidosis, unspecified; M48.54XA Collapsed vertebra, not elsewhere classified, thoracic region, initial encounter for fracture; N17.9 Acute kidney failure, unspecified; N39.0 Urinary tract infection, site not specified; D64.9 Anemia, unspecified; E03.9 Hypothyroidism, unspecified; E83.42 Hypomagnesemia; F41.9 Anxiety disorder, unspecified; I10 Essential (primary) hypertension; J43.9 Emphysema, unspecified; K59.00 Constipation, unspecified; M43.17 Spondylolisthesis, lumbosacral region; Z85.118 Personal history of other malignant neoplasm of bronchus and lung; Z85.3 Personal history of malignant neoplasm of breast; Z87.891 Personal history of nicotine dependence